=== PATIENT | female | born 1970 | race Caucasian/White ===

== ENCOUNTER 2019-07-16 20:54 | Emergency (ER) | payer OTHER ==
[~2019-07-16] VITALS: Ht 160 cm; Wt 63.5 kg
[2019-07-16 21:29] LABS: BASO % 0.4 % (0.0-1.0); EOS % 0.4 % (1.0-4.0); HEMATOCRIT 36.8 % (37.0-47.0); HEMOGLOBIN 12.6 g/dl (12.0-16.0); LYMPH # 2.2 10*3/uL (1.3-4.4); LYMPH % 23.6 % (27.0-41.0); MEAN CELL VOLUME 87.4 fl (81.0-99.0); MEAN CORPUSCULAR HGB 29.9 pg (27.0-31.0); MEAN CORPUSCULAR HGB CONC 34.2 g/dl (33.0-37.0); MEAN PLATELET VOLUME 9.6 fl (9.6-12.3); MONO # 0.5 10*3/uL (0.1-1.0); MONO % 5.4 % (3.0-9.0); NEUT # 6.5 10*3/uL (2.3-7.9); NEUT % 69.9 % (47.0-73.0); PLATELET COUNT AUTOMATED 289 10*3/uL (130-400); RED BLOOD COUNT 4.21 10*6/uL (4.10-5.10); RED CELL DISTRI WIDTH 13.4 % (0-14.5); WHITE BLOOD COUNT 9.4 10*3/uL (4.8-10.8)
[2019-07-16 21:47] LABS: ALBUMIN 4.1 gm/dl (3.1-4.5); ALKALINE PHOSPHATASE 61 U/L (45-117); BUN 10 mg/dl (7-24); CHLORIDE 103 mmol/L (98-107); CREATININE 0.92 mg/dL (0.55-1.02); POTASSIUM 3.5 mmol/L (3.5-5.1); SGOT/AST 11 IU/L (3-35); SGPT/ALT 14 U/L (12-78); SODIUM 138 mmol/L (136-145); TOTAL PROTEIN 7.7 gm/dL (6.4-8.2)
[2019-07-16 21:55] LABS: ACETAMINOPHEN (TYLENOL) < 5.0 ug/ml (10-30); ETHYL ALCOHOL < 3.0 mg/dl (<3)
[2019-07-16 22:15] LABS: BILIRUBIN NEGATIVE (NEGATIVE); BLOOD NEGATIVE (NEGATIVE); CLARITY CLEAR (CLEAR); COLOR YELLOW (YELLOW); GLUCOSE NEGATIVE (NEGATIVE); KETONE NEGATIVE (NEGATIVE); LEUKO ESTERASE TRACE (NEGATIVE); NITRITE NEGATIVE (NEGATIVE); SPECIFIC GRAVITY <= 1.005 (1.005-1.030); UROBILINOGEN 0.2 E.U./dl (0.2-1.0)
[2019-07-16 22:22] LABS: RBC 0-2 rbc/hpf (0-2)
[2019-07-16 22:23] LABS: BACTERIA 2+
[2019-07-16 22:24] LABS: URINE AMPHETAMINES > 1000 (1000ng/ml); URINE BARBITURATES < 200 (200ng/ml); URINE BENZODIAZEPINES > 200 (200ng/ml); URINE CANNABINOIDS (THC) < 50 (50ng/ml); URINE COCAINE < 300 (300ng/ml); URINE METHADONE < 300 (300ng/ml); URINE OPIATES < 300 (300ng/ml)
[2019-07-16 22:25] LABS: URINE PHENCYCLIDINE < 25 (25ng/ml)
[2019-07-17 15:44] VITALS: BP 116/65
== END 2019-07-17 17:17 | disposition home health service (06) ==
LOC: ED 20:54
PROVIDERS: Emergency Medicine
DX: F43.21 Adjustment disorder with depressed mood (principal); F43.10 Post-traumatic stress disorder, unspecified; F41.0 Panic disorder [episodic paroxysmal anxiety]; F31.9 Bipolar disorder, unspecified; F17.200 Nicotine dependence, unspecified, uncomplicated; Z91.040 Latex allergy status

== ENCOUNTER 2021-03-14 11:44 | Inpatient (IN) | payer OTHER ==
[2021-03-14 12:00] VITALS: BP 111/66
[2021-03-14 12:14] VITALS: BP 111/66
[2021-03-14] MEDS ORDERED: SEROQUEL XR400 MG PO (13:09)
[2021-03-14 13:10] LABS: BILIRUBIN Negative (Negative); BLOOD Negative (Negative); CLARITY Turbid (Clear); COLOR Yellow (Yellow); GLUCOSE Negative (Negative); KETONE Negative (Negative); LEUKO ESTERASE 3+ (Negative); NITRITE Negative (Negative); SPECIFIC GRAVITY 1.015 (1.001-1.030); UROBILINOGEN 0.2 E.U./dl (0.0-1.0)
[2021-03-14 13:17] LABS: WBC 16-20 wbc/hpf (0-5)
[2021-03-14 13:25] LABS: URINE AMPHETAMINES < 1000 (1000ng/ml); URINE BARBITURATES < 200 (200ng/ml); URINE BENZODIAZEPINES < 200 (200ng/ml); URINE CANNABINOIDS (THC) < 50 (50ng/ml); URINE COCAINE < 300 (300ng/ml); URINE METHADONE < 300 (300ng/ml); URINE OPIATES < 300 (300ng/ml)
[2021-03-14 13:27] LABS: URINE PHENCYCLIDINE < 25 (25ng/ml)
[2021-03-14 13:44] LABS: BASO # 0.1 10*3/uL (0.0-0.1); BASO % 0.6 % (0.0-1.0); EOS # 0.2 10*3/uL (0.0-0.4); EOS % 2.5 % (1.0-4.0); HEMATOCRIT 35.2 % (37.0-47.0); LYMPH % 24.8 % (27.0-41.0); MEAN CELL VOLUME 87.1 fl (81.0-99.0); MEAN CORPUSCULAR HGB CONC 32.1 g/dl (33.0-37.0); MEAN PLATELET VOLUME 9.3 fl (9.6-12.3); MONO # 0.5 10*3/uL (0.1-1.0); MONO % 6.6 % (3.0-9.0); NEUT # 5.3 10*3/uL (2.3-7.9); NEUT % 65.3 % (47.0-73.0); PLATELET COUNT AUTOMATED 337 10*3/uL (130-400); RED BLOOD COUNT 4.04 10*6/uL (4.10-5.10); RED CELL DISTRI WIDTH 13.2 % (0-14.5); WHITE BLOOD COUNT 8.2 10*3/uL (4.8-10.8)
[2021-03-14 13:58] LABS: ALBUMIN 3.5 gm/dl (3.1-4.5); ALKALINE PHOSPHATASE 91 U/L (45-117); BUN 15 mg/dl (7-24); CHLORIDE 107 mmol/L (98-107); CREATININE 0.82 mg/dL (0.55-1.02); SGOT/AST 11 IU/L (3-35); SGPT/ALT 14 U/L (12-78); SODIUM 137 mmol/L (136-145); TOTAL PROTEIN 7.8 gm/dL (6.4-8.2)
[2021-03-14 14:06] LABS: ETHYL ALCOHOL < 3.0 mg/dl (<3)
[2021-03-14 20:00] VITALS: BP 128/76
[2021-03-15] VITALS: BP 114/55
[2021-03-15 08:00] VITALS: BP 93/54
[2021-03-15 16:00] VITALS: BP 97/73
[2021-03-16] VITALS: BP 103/55
[2021-03-16 08:00] VITALS: BP 111/59
[2021-03-16 12:00] VITALS: BP 110/55
[2021-03-16 16:00] VITALS: BP 104/69
[2021-03-16 20:00] VITALS: BP 111/74
[2021-03-17] VITALS: BP 107/75
[2021-03-17 06:04] LABS: HEMATOCRIT 36.7 % (37.0-47.0); MEAN CELL VOLUME 86.8 fl (81.0-99.0); MEAN CORPUSCULAR HGB 28.1 pg (27.0-31.0); MEAN CORPUSCULAR HGB CONC 32.4 g/dl (33.0-37.0); MEAN PLATELET VOLUME 9.4 fl (9.6-12.3); PLATELET COUNT AUTOMATED 260 10*3/uL (130-400); RED BLOOD COUNT 4.23 10*6/uL (4.10-5.10); RED CELL DISTRI WIDTH 13.2 % (0-14.5); WHITE BLOOD COUNT 5.3 10*3/uL (4.8-10.8)
[2021-03-17 06:26] LABS: CREATININE 0.83 mg/dL (0.55-1.02)
[2021-03-17 07:42] LABS: BASOPHILS 2 % (0-1); PLATELET SUFFICIENCY NORMAL (NORMAL); TOTAL CELLS COUNTED 100 #CELLS
[2021-03-17 08:00] VITALS: BP 118/86
[2021-03-17] MEDS ORDERED: ATARAX,VISTARIL50 MG PO (09:37)
[2021-03-17] MEDS ORDERED: METHOCARBAMOL750 M1 PO (09:37)
[2021-03-17] MEDS ORDERED: MOTRIN 600 MG E4 TAB PO (09:37)
[2021-03-17] MEDS ORDERED: ZOFRAN 4 MG ED2 TAB PO (09:37)
[2021-03-17] MEDS ORDERED: ROPINIROLE HYD0.5 MG PO (09:37)
[2021-03-17] MEDS ORDERED: LIBRIUM5 MG PO (09:46)
== END 2021-03-17 09:59 | disposition home or self-care (01) | DRG 773 ==
LOC: 4E 11:44
PROVIDERS: Registered Nurse; ADMIT Student in an Organized Health Care Education/Training Program; ATTEND Student in an Organized Health Care Education/Training Program
DX: F11.13 Opioid abuse with withdrawal (principal); E44.0 Moderate protein-calorie malnutrition; F43.21 Adjustment disorder with depressed mood; F31.9 Bipolar disorder, unspecified; F43.10 Post-traumatic stress disorder, unspecified; F90.9 Attention-deficit hyperactivity disorder, unspecified type; F41.9 Anxiety disorder, unspecified; F17.210 Nicotine dependence, cigarettes, uncomplicated; Z91.040 Latex allergy status